=== PATIENT | female | born 1960 | race Two or more races ===

== ENCOUNTER → 2017-10-23 | Outpatient (CLI) | payer OTHER ==
[~2017-10-23] MED LIST: GADOBUTROL 10 MMOL/10 ML VIAL ONE
== END | disposition home or self-care (01) ==
LOC: CFH 12:54
PROVIDERS: ATTEND Family Medicine
DX: N64.53 Retraction of nipple (principal); R92.2 Inconclusive mammogram
CPT/HCPCS: 82565; A9585; C8908